=== PATIENT | female | born 1990 | race Caucasian/White ===

== ENCOUNTER 2019-01-26 13:27 | Emergency (ER) | payer MEDICAID ==
[~2019-01-26] VITALS: Ht 167.6 cm; Wt 54.9 kg
[2019-01-26 13:30] VITALS: Ht 167.6 cm; Wt 54.9 kg
[2019-01-26 14:27] VITALS: BP 114/42
== END 2019-01-26 14:27 | disposition home or self-care (01) ==
LOC: ED 13:27
DX: R19.7 Diarrhea, unspecified (principal); Z86.2 Personal history of diseases of the blood and blood-forming organs and certain disorders involving the immune mechanism

== ENCOUNTER 2019-04-11 12:15 | Emergency (ER) | payer MEDICAID ==
[~2019-04-11] VITALS: Ht 167.6 cm; Wt 54.4 kg
[2019-04-11 13:11] VITALS: Ht 167.6 cm; Wt 54.4 kg
[2019-04-11 15:00] VITALS: BP 125/74
== END 2019-04-11 15:00 | disposition home or self-care (01) ==
LOC: ED 12:15
DX: R06.02 Shortness of breath (principal); B37.3 Candidiasis of vulva and vagina; F41.9 Anxiety disorder, unspecified

== ENCOUNTER 2020-01-08 09:00 | Emergency (ER) | payer BC ==
[~2020-01-08] VITALS: Ht 167.6 cm; Wt 56.2 kg
[2020-01-08 09:31] VITALS: Ht 167.6 cm; Wt 56.2 kg
[2020-01-08 11:11] VITALS: BP 11/56
== END 2020-01-08 11:11 | disposition home or self-care (01) ==
LOC: ED 09:00
DX: S76.011A Strain of muscle, fascia and tendon of right hip, initial encounter (principal); X58.XXXA Exposure to other specified factors, initial encounter; Y93.89 Activity, other specified; Y92.89 Other specified places as the place of occurrence of the external cause; Y99.8 Other external cause status
CPT/HCPCS: Q0092